=== PATIENT | female | born 1990 | race Caucasian/White ===

== ENCOUNTER 2018-10-30 10:23 | Emergency (ER) | payer OTHER ==
[2018-10-30 10:38] VITALS: BP 104/59
--- NOTE | 2018-10-30 11:09 | EDPHY ---
General Time Seen by Provider: 10/30/18 10:53 Narrative: CLINICAL IMPRESSION: Nonthrombosed, External hemorrhoid ASSESSMENT/PLAN: 28-year-old otherwise healthy female presents to the emergency department with complaints of rectal pain and bleeding while having a bowel movement this morning. Patient is not reporting melena, bloody stools, abdominal pain, fever or chills, rectal trauma. She does report a past history of external hemorrhoids. On exam she has a small, 0.5 cm external hemorrhoid that is not thrombosed. No evidence of anal fissure, perirectal swelling, perirectal abscess. Patient was referred to GI and General surgery, [id number] supportive therapies discussed, prescription for Analpram 2.5% prescribed. Warning signs return to ED sooner outlined and discharge. DIFFERENTIAL DX: Differential diagnosis includes but not limited to internal hemorrhoids, external hemorrhoids, lower GI bleeding, anal fissure, upper GI bleed, Crohn's, ulcerative colitis, inflammatory bowel disease. CHIEF COMPLAINT: Rectal bleeding, hemorrhoid HPI: 28-year-old very pleasant female with no reported medical history presents to the emergency department with complaints of rectal bleeding this morning while having a bowel movement. She then looked in the mirror and thought she saw a hemorrhoid. Patient reports she has had bleeding in the past with small hemorrhoids. Outside of this she has not noted black, tarry, bloody stools. There is no personal or family history of Crohn's disease, ulcerative colitis or colon cancer. She recently came vegetarian. She states her stools are what she would consider normal. She admits that she was straining more recently. She is not anticoagulated. 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 PHYSICAL EXAM: General Appearance: Alert, oriented, appropriate, cooperative, NAD, well hydrated, non-toxic appearing, VSS, no hypoxia. Respiratory: There are no retractions, lungs are clear to auscultation. Cardiac: Regular rate and rhythm, no murmurs or gallops. Gastrointestinal: Abdomen is soft, nontender, bowel sounds normal, no masses/ hernia, no rigidity, guarding or focal peritoneal findings. : Small, nonthrombosed external hemorrhoid, no obvious anal fissure Skin: Warm, dry, no rashes, no nodules on palpation. MEDICAL DECISION MAKING: Patient was seen independently. Secondary supervising physician at time of evaluation was: Dr. العلي. Diagnosis: Nonthrombosed external hemorrhoid. New, requires workup Summary: See Assessment and Plan for summary of ED visit Patient Progress: Improved. - History Smoking Status: Never smoked - Objective Vital Signs: Initial Vital Signs Temperature (C) 36.7 C 10/30/18 10:35 Heart Rate 70 10/30/18 10:35 Respiratory Rate 16 10/30/18 10:35 Blood Pressure 104/59 L 10/30/18 10:35 O2 Sat (%) 97 10/30/18 10:35 O2 Delivery Mode Room Air Allergies/Adverse Reactions: No Known Allergies Allergy (Unverified 10/30/18 10:35) Home Medications: Medication Instructions Recorded Hydrocortisone/Pramoxine [Analpram 1 gm RC TID PRN #30 cream.appl 10/30/18 Hc 2.5% Cream] Departure - Departure Disposition: Home, Routine, Self-Care Clinical Impression: External hemorrhoid Condition: Fair Instructions: Hemorrhoids (ED) Additional Instructions: DISCHARGE INSTRUCTIONS FROM YOUR DOCTOR Thank you for visiting our emergency department today. Please keep in mind that discharge from the emergency department does not mean that there is nothing wrong - it simply means that we have not identified an emergency condition that requires further evaluation or treatment in the hospital. You should always plan to follow up with primary care for re-evaluation of your condition in the next 2-3 days. If you have been referred to a specialist, please call as soon as possible (today or tomorrow) to schedule your follow up appointment at the appropriate time. YOU HAVE WHAT APPEARS TO BE A NON THROMBOSED EXTERNAL HEMORRHOID. PLEASE CONSIDER STOOL SOFTENERS LIKE COLACE OR GLYCERIN SUPPOSITORIES OVER-THE- COUNTER. DRINK PLENTY OF FLUID. CONSIDER USING TUCKS PADS TO HELP WITH BURNING. YOU CAN CONTINUE USING [id number] PREPARATION H OR A PRESCRIPTION FOR A STRONGER TOPICAL CREAM WAS PRESCRIBED. PLEASE FOLLOW UP WITH PRIMARY CARE. WE ALSO PROVIDED REFERRALS TO GENERAL SURGERY AND GI. PLEASE RETURN TO THE EMERGENCY DEPARTMENT FOR SWELLING OF THE HEMORRHOID, PURPLE OR BLACK DISCOLORATION, HIGH FEVERS, INABILITY TO HAVE BOWEL MOVEMENTS, ABDOMINAL PAIN, BLACK DARK OR TARRY STOOLS, OR ANY OTHER CONCERNS. People present with illnesses and injuries in different ways, and it is always possible that we have missed something. You may always return for re-evaluation if symptoms worsen or if they are not improving or if you develop new/different symptoms. Again, thank you for choosing our emergency department. We hope that you feel better. Referrals: Celia Singh MD [Medical Doctor] - 2-3 days, if not improved Curly Alonzo MD [Medical Doctor] - 3-4 days, if not improved Prescriptions: Hydrocortisone/Pramoxine [Analpram Hc 2.5% Cream] 1 gm RC TID PRN #30 cream.appl PRN Reason: Pain, Breakthrough
== END 2018-10-30 11:23 | disposition home or self-care (01) ==
DX: K64.9 Unspecified hemorrhoids (principal)

== ENCOUNTER 2018-12-05 14:16 | Emergency (ER) | payer OTHER ==
[2018-12-05 18:06] VITALS: BP 105/67
--- NOTE | 2018-12-08 07:56 | EDPHY ---
H & P Time Seen by Provider: 12/05/18 14:30 HPI/ROS: HPI Right arm pins and needles. 28-year-old female by private vehicle with her boyfriend. This patient reports that she developed a sharp, intermittent stabbing sensation involving her right shoulder blade starting yesterday. There is no history of trauma. She had acupuncture and cupping as treatment for this earlier this morning. She now reports an odd sensation of pins and needles and tingling in her right upper extremity today. No neck pain. No headache. She denies any weakness in her right upper extremity. She denies any loss of sensation in her right upper extremity. No other complaints. ROS: Constitutional: No fever, no chills. No weakness. Eyes: No discharge. No changes in vision. ENT: No sore throat. No nasal congestion or rhinorrhea. Respiratory: No cough. No shortness of breath. Cardiac: No chest pain, no palpitations. Gastrointestinal: No abdominal pain, no vomiting, no diarrhea. Genitourinary: No hematuria. No dysuria or increased frequency with urination. Musculoskeletal: As above. No neck pain. No myalgias or arthralgias. Skin: No rashes. Neurological: No headache. As above. Past medical history: No significant past medical history. Appendectomy. Social history: Nonsmoker. No alcohol. Here with boyfriend. Physical Exam: General Appearance: Alert, no distress. This patient is responding to questions appropriately and in full sentences. This patient appears well- hydrated and well-nourished. Eyes: Pupils equal and round no pallor or injection. No lid edema, erythema or injection. Right upper extremity exam: The right upper extremity is neurovascularly intact. Neurologically intact in all myotomes in dermatomes. There is no asymmetric swelling on inspection of the right upper extremity verses the left upper extremity. Examination of the right shoulder blade is unremarkable. No tenderness on palpation. No ecchymosis, erythema, warmth or deformity noted on palpation of the shoulder blade. She does have residual nolan from cupping procedure. Respiratory: There are no retractions, lungs are clear to auscultation with good air movement bilaterally. Cardiovascular: Regular rate and rhythm. No murmur. Neurological: Motor sensory function is grossly intact. Cranial nerves are normal. Gait is normal. Skin: Warm and dry, no rashes. Musculoskeletal: Neck is supple and nontender. Extremities are symmetrical. All joints range without pain or impingement. Psychiatric: No agitation. No depression. Database: EKG: Imaging: MRI of cervical spine and brain without contrast: Unremarkable except for a mild disc bulge at C5-C6. Results were discussed with staff radiologist Dr. Jason Colon. Procedures: Emergency department course: Triage vital signs reviewed and are normal. The patient's presentation is not consistent with a traumatic injury. Radiculopathy and brachial plexus syndrome or unlikely. Consideration for early new onset MS discussed with the patient. MRI brain and cervical spine to be obtained. Results of MRIs discussed with the patient and her boyfriend. Repeat neurologic Assessment is nonfocal. The patient does feel comfortable going home at this time. She reports that she is feeling better and denies significant altered sensation in her right upper extremity on re-evaluation. I have instructed her to follow up with her primary care physician and I will also provide her with a referral to our neurology service. She feels comfortable with this plan. She feels comfortable being discharged. Return to emergency department precautions have been reviewed with her. All of her questions were answered. She was discharged from the emergency department in good condition. Differential Diagnosis: The differential diagnosis on this patient includes but is not limited to MS, radiculopathy, brachial plexus syndrome, CVA, tick paralysis, traumatic injury unlikely. This represents a partial list of diagnoses considered. These considerations are based on history, physical exam, past history, reassessment and diagnostic testing. Smoking Status: Never smoked Constitutional: Initial Vital Signs Temperature (C) 36.9 C 12/05/18 14:28 Heart Rate 67 12/05/18 14:28 Respiratory Rate 18 12/05/18 14:28 Blood Pressure 105/67 12/05/18 14:28 O2 Sat (%) 97 12/05/18 14:28 O2 Delivery Mode Room Air Allergies/Adverse Reactions: No Known Allergies Allergy (Verified 12/05/18 18:25) Home Medications: Medication Instructions Recorded Hydrocortisone/Pramoxine [Analpram 1 gm RC TID PRN #30 cream.appl 10/30/18 Hc 2.5% Cream] Departure - Departure Disposition: Home, Routine, Self-Care Clinical Impression: Paresthesia Condition: Good Instructions: Paresthesia (ED) Additional Instructions: Read and follow provided instructions. Follow-up with your primary care physician in 1-2 days for re-evaluation. I have also provided you with a referral to our neurology group. Please call their office tomorrow morning to schedule a follow-up appointment. Explained this is for an emergency department follow-up. Return to the emergency department for worsening symptoms, loss of sensation or weakness in your right arm, swelling, discoloration or other serious concerns. Referrals: ERIN AGUSTIN NP [Primary Care Provider] - As per Instructions Curly Calderón DO [Medical Doctor] - As per Instructions
== END 2018-12-05 17:30 | disposition home or self-care (01) ==
DX: R20.2 Paresthesia of skin (principal)
CPT/HCPCS: 70551-PN